=== PATIENT | male | born 1970 | race Caucasian/White ===

== ENCOUNTER 2025-06-20 06:24 | Day surgery (SDC) | payer BC, SELFPAY | END 2025-06-20 09:05 | disposition home or self-care (01) | LOC: GI 06:24 | PROVIDERS: ATTENDING PHYSICIAN Student in an Organized Health Care Education/Training Program | DX: Z12.11 Encounter for screening for malignant neoplasm of colon (principal); Z83.719 Family history of colon polyps, unspecified; K57.30 Diverticulosis of large intestine without perforation or abscess without bleeding; D12.3 Benign neoplasm of transverse colon; D12.2 Benign neoplasm of ascending colon; K63.89 Other specified diseases of intestine | CPT/HCPCS: 45385; 45380; 88305 ==